=== PATIENT | male | born 1950 | race Two or more races ===

== ENCOUNTER 2022-08-26 01:40 | Emergency (ER) | payer OTHER ==
[~2022-08-26] VITALS: Ht 180.3 cm; Wt 70.3 kg
--- NOTE | 2022-08-26 01:49 | NUR ---
BIBPA FROM SNF C/O NEEDS PSYCH EVAL FEELING Anxious AND AGITATED. PT A/OX2/3. TOLERATING R/A WELL WITH NO RESP DISTRESS. SAFETY MEASURES IN PLACE.
--- NOTE | 2022-08-26 02:33 | NUR ---
LAB AT BEDSIDE
[2022-08-26 03:13] LABS: BASOPHILS # (AUTO) 0.1 K/uL (0.0-0.2); BASOPHILS % (AUTO) 0.9 % (0.0-2.0); EOSINOPHILS % (AUTO) 2.6 % (0.0-6.0); HEMATOCRIT 44 % (39-51); HEMOGLOBIN 14.6 g/dL (13.5-17.5); LYMPHOCYTES % (AUTO) 37.1 % (20.0-44.0); MEAN CORPUSCULAR HGB CONC 34 g/dl (31.0-36.0); MEAN CORPUSCULAR VOLUME 93 fL (80-96); MONOCYTES # (AUTO) 0.7 K/uL (0.1-1.30); MONOCYTES % (AUTO) 6.2 % (2.0-12.0); NEUTROPHILS # (AUTO) 5.8 K/uL (1.8-8.9); NEUTROPHILS % (AUTO) 53.2 % (43.0-81.0); PLATELET COUNT (AUTO) 229 K/uL (150-450); WHITE BLOOD COUNT (AUTO) 10.9 K/uL (4.3-11.0)
[2022-08-26 03:15] LABS: BILIRUBIN,URINE NEGATIVE (NEGATIVE); COLOR,URINE YELLOW (YELLOW); LEUKOCYTE ESTERASE ,URINE NEGATIVE (NEGATIVE); NITRITE, URINE NEGATIVE (NEGATIVE); PROTEIN,URINE NEGATIVE (NEGATIVE); UGLUCOSE NEGATIVE (NEGATIVE); UROBILINOGEN,URINE 0.2 EU/dL (0.2)
[2022-08-26 03:18] LABS: CALCIUM, SERUM 9.1 mg/dL (8.5-10.1); CARBON DIOXIDE 28 mmol/L (21-32); CHLORIDE 103 mmol/L (98-107); GLUCOSE 185 mg/dL (74-106); POTASSIUM 4.5 mmol/L (3.5-5.1); SODIUM SERUM 142 mmol/L (136-145); UREA NITROGEN, BLOOD 14 mg/dL (7-18)
[2022-08-26 03:23] LABS: ALANINE AMINOTRANSFERASE 18 U/L (12-78); ALBUMIN 3.9 g/dL (3.4-5.0); ALCOHOL, BLOOD < 3 mg/dL (0-0); ALKALINE PHOSPHATASE 146 U/L (46-116); ASPARTATE AMINOTRANSFERASE 13 U/L (15-37); BILIRUBIN,DIRECT 0.1 mg/dL (0.0-0.2); BILIRUBIN,TOTAL 0.5 mg/dL (0.2-1.0); TOTAL PROTEIN, SERUM 7.7 g/dL (6.4-8.2)
[2022-08-26 03:24] LABS: ACETAMINOPHEN 0 ug/ml (10-30)
--- NOTE | 2022-08-26 03:38 | NUR ---
CALLED [facility] FOR PSYCH EVAL
--- NOTE | 2022-08-26 05:20 | NUR ---
[facility] AT PT'S BEDSIDE FOR PSYCH EVAL
--- NOTE | 2022-08-26 09:38 | NUR ---
pt resting in bed. no apparent distress noted. calm. offered food states not hungry. will continue to monitor.
[2022-08-26] MEDS ORDERED: QUET25TA PO (12:16)
[2022-08-26] MEDS ORDERED: ESCI5TAB PO (12:16)
--- NOTE | 2022-08-26 12:28 | NUR ---
[facility] called, transport eta 90 mins.
[2022-08-26] MEDS ORDERED: QUETIAPINE FUMARATE 25 MG TABLET ONE (12:29)
[2022-08-26] MEDS ORDERED: ESCITALOPRAM OXALATE (10 MG) 10 MG TABLET ONE (12:29)
[2022-08-26] MEDS ORDERED: ESCITALOPRAM OXALATE (10 MG) 10 MG TABLET PO ONE (12:30)
[2022-08-26] MEDS: QUETIAPINE FUMARATE 25 MG TABLET PO SCH ×2 (12:34→12:35)
--- NOTE | 2022-08-26 12:34 | NUR ---
OK TO GIVE PER DR. FIELD SEROQUEL AND LEXAPRO PO, NEL WELL BY PT
--- NOTE | 2022-08-26 14:07 | NUR ---
pt medically and psych cleared. pt transported back to Snf in stable condition.
[2022-08-26 14:22] VITALS: BP 116/66
== END 2022-08-26 14:22 ==
LOC: ER 01:51
DX: F33.3 Major depressive disorder, recurrent, severe with psychotic symptoms (principal); R45.1 Restlessness and agitation; Z20.822 Contact with and (suspected) exposure to COVID-19; I69.351 Hemiplegia and hemiparesis following cerebral infarction affecting right dominant side; E11.9 Type 2 diabetes mellitus without complications
CPT/HCPCS: 99285; 85025; 80048; 80076; 81003; 36415; 87426; 80143; 80320; 80307; C9803; G0480

== ENCOUNTER 2022-08-28 11:52 | Emergency (ER) | payer OTHER ==
[~2022-08-28] VITALS: Ht 180.3 cm; Wt 61.2 kg
[~2022-08-28 11:52] MED LIST: ESCI5TAB PO; QUET25TA PO
[2022-08-28] MEDS ORDERED: PROPOFOL 200 MG/20 ML VIAL IV ONE (13:30)
[2022-08-28] MEDS ORDERED: PROPOFOL 20 ML IV ONE (14:08)
--- NOTE | 2022-08-28 14:33 | NUR ---
1419- PATIENT GIVEN 70 MG PROPOFOL IVP, V/S: BP 115/70, HR 75, O2 98% ON 2 LPM O2 VIA CANNULA, RR 19 1424- SHOULDER RELOCATION PERFORMED 1425- RIGHT ARM SLING PLACED BY DR COATES 1427- X-RAY PRESENT AT BEDSIDE
--- NOTE | 2022-08-28 14:35 | NUR ---
1410- 20 G SALINE LOCK PLACED IN PATIENT LEFT AC.
[2022-08-28] MEDS ORDERED: IV NS 0.9% 1,000 ML IV ONE (15:00)
[2022-08-28] MEDS ORDERED: KETOROLAC TROMETHAMINE INJ 60 MG/2 ML VIAL IM ONE ×2 (15:23→15:30)
--- NOTE | 2022-08-28 15:38 | NUR ---
CALLED [facility] AND REPORT GIVEN TO GUILLERMO LAMBERT
--- NOTE | 2022-08-28 15:52 | NUR ---
TRANSPORT IS SET UP, ETA IS [id number]
--- NOTE | 2022-08-28 17:48 | NUR ---
Patient discharged to SNF in stable condition. Written and verbal after care instructions given. Patient verbalizes understanding of instruction. IV line and ID bands removed.
[2022-08-28 17:49] VITALS: BP 125/62
== END 2022-08-28 17:49 ==
LOC: ER 11:54
DX: S43.014A Anterior dislocation of right humerus, initial encounter (principal); E11.9 Type 2 diabetes mellitus without complications; Z79.899 Other long term (current) drug therapy; W18.30XA Fall on same level, unspecified, initial encounter; Y93.89 Activity, other specified; Y92.89 Other specified places as the place of occurrence of the external cause; Y99.8 Other external cause status
CPT/HCPCS: 99285; 23650; 96360; 73060; 73030; 96372; 73020; J2704; J1885; J7030